=== PATIENT | male | born 1985 | race Hispanic/Latino ===

== ENCOUNTER 2018-06-28 14:41 | Emergency (ER) | payer OTHER ==
[2018-06-28 14:42] VITALS: BMI 21.5
[2018-06-28 14:51] VITALS: BP 143/97; PULSE 67; RESP 16; TEMP 97.8; O2SAT 100
--- NOTE | 2018-06-28 15:45 | C.PDOC ---
History Of Present Illness 32 y/o male brought in by EMS with complaint of feeling unwell since smoking marijuana earlier today. Patient states I was smoking and I think it was laced with PCP. Of note, patient has history of Crohns disease and rheumatoid arthritis, and complains of chronic joint and finger pain. He denies any new pain, nausea, vomiting, hallucinations, or other associated symptoms. Also denies SI/HI. Patients only complaint is that he feels terrible. Time Seen by Provider: 06/28/18 15:04 Chief Complaint (Nursing): Substance Abuse History Per: Patient History/Exam Limitations: intoxication Onset/Duration Of Symptoms: Hrs Current Symptoms Are (Timing): Still Present Modifying Factor(s): Marijuana (with questionable PCP) Associated Symptoms: denies: Suicidal Thoughts, Suicidal Plan Additional History Per: EMS Past Medical History Reviewed: Historical Data, Nursing Documentation, Vital Signs Vital Signs: Last Vital Signs Temp 97.8 F 06/28/18 14:50 Pulse 67 06/28/18 14:50 Resp 16 06/28/18 14:50 BP 143/97 H 06/28/18 14:50 Pulse Ox 100 06/28/18 14:50 - Medical History PMH: Anxiety, Arthritis, Bipolar Disorder, Crohn's Disease (currently in remission) Denies: Diabetes, Hepatitis, HIV, HTN, Chronic Kidney Disease, Seizures, Sexually Transmitted Disease - [facility] Procedures APPLICATION OF SPLINT (01/31/07) INJECT/INFUSE NEC (02/14/14) TETANUS TOXOID ADMINIST (02/14/14) Family History: States: Unknown Family Hx - Social History Hx Alcohol Use: No Hx Substance Use: Yes - Immunization History Hx Tetanus Toxoid Vaccination: No Hx Influenza Vaccination: No Hx Pneumococcal Vaccination: No Review Of Systems Constitutional: Negative for: Fever, Chills Cardiovascular: Negative for: Chest Pain Respiratory: Negative for: Shortness of Breath Gastrointestinal: Negative for: Nausea, Vomiting, Abdominal Pain, Diarrhea Psych: Negative for: Suicidal ideation (or homicidal), Other (hallucinations) Physical Exam - Physical Exam Appears: Non-toxic, No Acute Distress, Other (Appears drowsy and anxious) Skin: Normal Color, Warm, Dry Head: Atraumatic, Normacephalic Eye(s): bilateral: Normal Inspection Oral Mucosa: Moist Neck: Normal ROM Chest: Symmetrical Cardiovascular: Rhythm Regular, No Murmur Respiratory: Normal Breath Sounds, No Accessory Muscle Use Gastrointestinal/Abdominal: Soft, No Tenderness, No Distention, No Guarding Extremity: Bilateral: Atraumatic, Normal Color And Temperature, Normal ROM Pulses: Left Dorsalis Pedis: Normal, Right Dorsalis Pedis: Normal Neurological/Psych: Normal Speech, Other (Awake, cooperative) ED Course And Treatment O2 Sat by Pulse Oximetry: 100 (RA) Pulse Ox Interpretation: Normal Medical Decision Making Medical Decision Making: Impression: 32 y/o intoxicated male, concerned regarding PCP use Plan: * urine drug screen Patient never gave urine. Walked out Disposition - Disposition Disposition: ELOPEMENT - ER ONLY Disposition Time: 17:49 Condition: STABLE Forms: [facility] (Portuguese) - Clinical Impression Clinical Impression: Drug abuse - Scribe Statement The provider has reviewed the documentation as recorded by the Scribe (Paradise Dominguez) Provider Attestation: All medical record entries made by the Scribe were at my direction and personally dictated by me. I have reviewed the chart and agree that the record accurately reflects my personal performance of the history, physical exam, medical decision making, and the department course for this patient. I have also personally directed, reviewed, and agree with the discharge instructions and disposition.
== END 2018-06-28 17:49 | disposition left against medical advice (07) ==
LOC: C.ER 14:41
DX: F19.10 Other psychoactive substance abuse, uncomplicated (principal)